=== PATIENT | male | born 1950 | race Caucasian/White ===

== ENCOUNTER 2017-03-09 08:28 | Outpatient (CLI) | payer MEDICARE ==
--- NOTE | 2017-03-09 11:52 | MRI ---
MRI LEFT HIP WITHOUT CONTRAST: Date: 03/09/17 HISTORY: Bilateral hip pain for 2 months. Left hip hurts worse more than the right. COMPARISON: Hip radiographs dated 01/26/17. FINDINGS: Bones: There is abnormal linear stress-type fracture of the femoral head and neck. It extends to the produce sorter ior articular femoral surface which is incongruous. There is also abnormal edema within the posterio r margin of the acetabulum, which is likely stress related. The femoral head incongruence is less th an 2.0 mm and involves approximately 25% of the posterior superior articular surface. There is edema extending along the intertrochanteric region of the femur, extending from the lateral femoral head to the intertrochanteric region through the femoral neck. The proximal diaphysis and metaphysis are intact. The lesser and greater trochanters are intact. The visualized portions of the left inferior and superior pubic rami are intact. Moderate degenerati ve disease of the lumbar spine. Tendons: There is moderate tendinosis of the common hamstring tendon with undersurface partial tearing. There is also partial tearing of the gluteus medius and minimus tendons. Acetabular Labrum: There is moderate degenerative fraying. Muscles: No significant atrophy. IMPRESSION: 1. Stress/insufficiency type fracture of the posterior superior femoral head involving approximatel y 25% of the articular surface posteriorly with less than 2.0 mm articular surface depression. Stres s edema extends into the femoral neck. No displaced fracture is appreciated. 2. Mild stress edema of the posterior acetabulum. 3. Moderate degenerative fraying of the anterior and superior labrum. 4. Moderate gluteus medius and minimus tendinosis and partial tearing. 5. Superior labral tear. POS: [facility]
--- NOTE | 2017-03-09 12:00 | MRI ---
MRI RIGHT HIP WITHOUT CONTRAST: Date: 03/09/17 HISTORY: Hip pain. COMPARISON: None. FINDINGS: Bones: There is mild stress edema of the right femoral neck. There is some cortical irregularity of the pos terior superior femoral head with some sclerosis of the margin, although there is moderate edema. Cartilage: There is moderate cartilage narrowing of the lateral acetabulum and femoral head. Tendons: There is only low grade tendinosis of the common hamstring tendon, as well as semimembranosus. There is moderate interstitial tearing of the gluteus medius tendon. Mild tearing of the gluteus minimus tendon. Iliopsoas tendon appears to be intact. Acetabular Labrum. Extensive volume loss of the acetabular labrum with degenerative tearing. IMPRESSION: 1. Mild stress edema of the right femoral neck along with articular surface in congruency of the po sterolateral femoral head and subchondral edema. This abnormal sclerosis may be chronic in this alvarado ent as some of the borders appear sclerotic. This is a similar appearance to the left hip, although not as severe. The patient is at risk for full complete insufficiency fracture with continued use. 2. Extensive labral degeneration and tearing. 3. Moderate chondral loss of the lateral weightbearing surface of the femoral head, as well as acet abulum. POS: [facility]
== END 2017-03-09 08:29 | disposition home or self-care (01) ==
LOC: SCSMRI 08:28
PROVIDERS: ATTEND Anesthesiology Pain Medicine
DX: M16.10 Unilateral primary osteoarthritis, unspecified hip (principal); R60.0 Localized edema; M84.352A Stress fracture, left femur, initial encounter for fracture; S73.101A Unspecified sprain of right hip, initial encounter; S73.102A Unspecified sprain of left hip, initial encounter

== ENCOUNTER 2019-09-04 12:52 | Outpatient (CLI) | payer MEDICARE ==
[2019-09-04 13:29] LABS: Estimated GFR-MDRD - POC Greater than 90
--- NOTE | 2019-09-04 14:29 | MRI ---
Exam: Lumbar spine MRI with and without contrast Comparison 01/26/2017 HISTORY: Bilateral hip and leg pain. Lumbar stenosis with neurogenic claudication. Previous back surg shraddha TECHNIQUE: MRI lumbar spine is performed with and without intravenous gadolinium administration. Mult i sequential, multiplanar imaging is performed FINDINGS: Appropriate T1 marrow signal intensity of the lumbar vertebra. Lumbar spine vertebral body height is maintained. No fracture. There is intrinsic T1 and T2 hyperintensity at the L3-L4, L4-L5 and L5-S1 disc spaces suggesting type II Modic change. Minimal superimposed type I Modic changes at L4-L5. Acut e Schmorl's node along the inferior endplate of L5. Appropriate signal intensity visualized paraspinal muscles and solid organs Conus medullaris terminates at the T12-L1 disc space Extensive posterior element hypertrophy at L3-L4, L4-5 and L5-S1. Postcontrast images do not demonstrate abnormal enhancement with regards to the vertebral bodies. The re is no abnormal enhancement within the thecal sac including the cauda equina and conus medullaris. T12-L1: No significant central canal stenosis or significant neural foraminal narrowing L1-L2: Adequate disc hydration. No significant central canal stenosis or significant neural foraminal narrowing L2-L3: Disc desiccation with mild loss of disc space height. Broad-based disc bulge with a superimpos ed midline disc herniation. Resultant moderate to severe central canal stenosis. The degree of central canal stenosis has progressed. Mild bilateral neural foraminal narrowing L3-L4: Desiccation with severe loss of disc space height. Posterior laminectomy defect. No high-grade central canal stenosis. Moderate right and left neural foraminal narrowing L4-L5: Desiccation with severe loss of disc space height. Posterior decompressive laminectomy defect. Minimal encroachment upon the left and right subarticular zone secondary to disc material. There is contact upon both traversing L5 nerve roots without evidence of significant stenosis. Moderate to severe bilateral neural foraminal narrowing. L5-S1: Disc desiccation with severe loss of disc space height. Central disc herniation minimally cont acts the ventral thecal sac. Posterior laminectomy defect. No significant central canal stenosis. Moderate to severe bilateral neural foraminal narrowing. IMPRESSION: 1. Worsening central canal stenosis at L2-L3. 2. Stable multilevel facet arthropathy. Redemonstration of multilevel neural foraminal narrowing, as described above. 3. Stable postsurgical change. Transcribed Date/Time: 09/04/2019 2:37 PM
== END 2019-09-04 12:53 | disposition home or self-care (01) ==
LOC: TBSIIMAG 12:52
PROVIDERS: ATTEND Neurological Surgery
DX: M48.062 Spinal stenosis, lumbar region with neurogenic claudication (principal); Z98.890 Other specified postprocedural states; M47.816 Spondylosis without myelopathy or radiculopathy, lumbar region
CPT/HCPCS: 72158; 82565

== ENCOUNTER 2019-10-04 05:41 | Day surgery (SDC) | payer MEDICARE ==
[2019-10-02 14:43] VITALS: BMI 37.5
--- NOTE | 2019-10-03 22:28 | HP ---
HISTORY OF PRESENT ILLNESS: Mr. Banks is a 69-year-old man, known to our practice for prior evaluations of he returns now with increasing symptoms of neurogenic claudication and lumbar radiculopathy. Given MRI scan from [place] revealed severe L2-L3 stenosis, he comes in for possible discussion regarding surgical decompression. He has been treated this over time with Dr. Rodgers, with both injections in the lumbar spine and at the SI joints he has reached a point now, where all modalities have been rendered ineffective. PAST MEDICAL HISTORY: Significant for hypercholesterolemia, hypertension, and seasonal allergies. PAST SURGICAL HISTORY: None listed. CURRENT MEDICATIONS: None listed. ALLERGIES: NO KNOWN DRUG ALLERGIES. PHYSICAL EXAMINATION: The patient is alert and oriented x3. Gait is mildly antalgic. Lower extremity motor exam is normal. ASSESSMENT: Spinal stenosis with neurogenic claudication. PLAN: Dr. Jean met with the patient, reviewed imaging, and advocated for L2-L3 decompression. He explained to the patient the risks, benefits, and alternatives of the procedure. The patient expressed understanding and elected to move forward with surgery as discussed. I do believe the patient is mentally competent and capable of making medical decisions for himself. We will move forward with surgery as planned. Job ID: [id number]
[2019-10-04] MEDS ORDERED: EPINEPHrine 1 MG/ML AMP ONE (06:29)
[2019-10-04] MEDS ORDERED: Bupivacaine PF 0.5% 30 ML VIAL ONE (06:29)
[2019-10-04] MEDS ORDERED: Thrombin 5000 UNITS/5 ML VIAL ONE (06:29)
[2019-10-04] MEDS ORDERED: Fentanyl 100 MCG/2 ML VIAL ONE ×3 (06:46→08:17)
--- NOTE | 2019-10-04 08:19 | OP ---
DATE OF PROCEDURE: 10/04/2019 DRAWING FRAME TENDER: Gee Cason PA-C INDICATION: Pain. DIAGNOSIS: Lumbar stenosis with neurogenic claudication. OPERATION: L2-L3 lumbar decompression. ANESTHESIA: General. DESCRIPTION OF PROCEDURE: The patient was brought into the operating room and placed under general anesthesia. He was flipped from the supine to prone position on the operating room table. A linear incision was planned over the L2-L3 segment. After prepping and draping and after an appropriate operative pause, the incision was created. The soft tissues were swept away from midline. Self-retaining retractors were placed in the wound for optimal exposure. After confirming the appropriate level with C-arm fluoroscopy, an Adson rongeur was used to remove the spinous process along the inferior aspect of L2 and the superior aspect of L3. High-speed cutting drill bit as well as 2-, 3- and 4-mm Kerrisons were used to complete the laminectomy at the L2-L3 segment. The laminectomy was extended laterally to encompass the medial aspect of the facet joints in order to decompress the lateral recesses. After completing the decompression, the wound was irrigated. Hemostasis was maintained throughout. The wound was then closed in anatomic layers and a pressure dressing was applied. There were no known procedural complications. Job ID: [id number]
[2019-10-04] MEDS ORDERED: HYDROcodone/Acetaminophen 5/325 mg Tablet ONE (09:14)
[2019-10-04] MEDS ORDERED: Ondansetron PF 4 MG/2 ML Vial ONE (15:08)
[2019-10-04] MEDS ORDERED: Lidocaine 1% PF 5 ML VIAL ONE (15:08)
[2019-10-04] MEDS ORDERED: PROPOFOL 200 MG/20 ML VIAL ONE (15:08)
[2019-10-04] MEDS ORDERED: Rocuronium Bromide 10 MG/ML (10ML VIAL) ONE (15:08)
[2019-10-04] MEDS ORDERED: PHENYLEPHRINE-NS 100 MCG/ML 10 ML SYRINGE ONE (15:08)
[2019-10-04] MEDS ORDERED: Glycopyrrolate 0.2 MG/ML 5 ML SYRINGE ONE (15:08)
[2019-10-04] MEDS ORDERED: Dexamethasone 20 MG/5 ML VIAL ONE (15:08)
== END 2019-10-04 10:25 | disposition home or self-care (01) ==
LOC: SDC 05:41
PROVIDERS: ATTEND Neurological Surgery
PROC: 01NB0ZZ Release Lumbar Nerve, Open Approach (ICD-10-PCS; principal; 2019-10-04)
DX: M48.062 Spinal stenosis, lumbar region with neurogenic claudication (principal); M54.16 Radiculopathy, lumbar region; E78.00 Pure hypercholesterolemia, unspecified; I10 Essential (primary) hypertension; J30.2 Other seasonal allergic rhinitis; Z79.1 Long term (current) use of non-steroidal anti-inflammatories (NSAID); Z79.82 Long term (current) use of aspirin; Z79.899 Other long term (current) drug therapy; Z91.011 Allergy to milk products
CPT/HCPCS: 76000; 93005; 93010; J0171; J0690; J1100; J2001; J2405; J2704; J3010; S0020